=== PATIENT | female | born 1950 | race African-American/Black ===

== ENCOUNTER 2022-01-06 10:19 | Outpatient (CLI) | payer BC, MEDICARE ==
[2022-01-06 11:00] LABS: Estimated GFR-MDRD - POC Greater than 90
== END 2022-01-06 10:20 | disposition home or self-care (01) ==
LOC: BICCT 10:19
PROVIDERS: ATTEND Urology
DX: N28.1 Cyst of kidney, acquired (principal); D17.71 Benign lipomatous neoplasm of kidney
CPT/HCPCS: 74170; 82565

== ENCOUNTER 2024-08-05 13:59 | Emergency (ER) | payer BC, MEDICARE, OTHER | END 2024-08-05 15:55 | disposition home or self-care (01) | LOC: ERS 13:59 | DX: S80.01XA Contusion of right knee, initial encounter (principal); S80.02XA Contusion of left knee, initial encounter; W17.89XA Other fall from one level to another, initial encounter | CPT/HCPCS: 99283 ==